=== PATIENT | male | born 1950 | race Caucasian/White ===

== ENCOUNTER 2016-02-10 12:19 | Day surgery (SDC) | payer MEDICARE, OTHER ==
[~2016-02-10] VITALS: Ht 175.3 cm; Wt 103.0 kg
[~2016-02-10 12:19] MED LIST: 0.9% Sodium Chloride 1,000 ML IV PRN; AMLO5TAB2 PO; ASPI-973 PO; CHOL5000 PO; FAMO40TA6 PO; FENO145T19 PO; FEXO-106 PO; LIP40 PO; LOSA1TAB15 PO; MULT1CAP33 PO; PRED-508 PO; SILD100T PO; SIMV20TA4 PO; Sodium Chloride LOK Flush 10 mL Syringe IV PRN; fentaNYL-PF 50 mCg/mL 2 mL Inj IVPUSH PRN
[2016-02-10 13:50] VITALS: BP 138/102; PULSE 61; O2SAT 95
[2016-02-10 14:27] VITALS: BP 125/69; PULSE 52; RESP 16; O2SAT 92
[2016-02-10 14:37] VITALS: BP 131/72; PULSE 52; RESP 16; O2SAT 95
--- NOTE | 2016-02-10 14:46 | ENDO ---
[address] [address] ENDOSCOPY PROCEDURE PATIENT: SARAH CALLE : 1950 MR#: [id number] ADMIT: 02/10/2016 JOB ID: [id number] DATE OF SERVICE: 02/10/2016 PROCEDURE PERFORMED: Colonoscopy. INDICATIONS: Screening. ASA CLASSIFICATION: The patient's ASA classification is II. MALLAMPATI SCORE: Mallampati score was 2. MEDICATIONS: 1. Versed 5 mg. 2. Fentanyl 100 mcg. INSTRUMENT USED: PCF-H180AL. PREPARATION QUALITY: Good. PROCEDURE DETAILS: After informed consent was obtained, the patient was brought into the GI suite, where he was placed on oxygen via nasal cannula and monitored with continuous pulse oximeter, telemetry, and blood pressure monitoring. A time-out was performed. Then, he was placed in the left lateral decubitus position and medications were administered for sedation. Digital rectal exam with palpation of the prostate was performed which was unremarkable. The colonoscope was then inserted into the rectum and advanced under direct visualization to the cecum, which was identified by the presence of the ileocecal valve and appendiceal orifice. Once the cecum was reached, the colonoscope was then withdrawn back to the rectum, as the mucosa and lumen were examined. In the rectum, retroflexion was performed. Following retroflexion, remaining air in the rectum was suctioned, and procedure was completed. FINDINGS: 1. A diminutive polyp was seen in the rectum that was removed with cold biopsy forceps. 2. Otherwise normal exam from rectum to cecum. 3. Retroflexed views in the rectum revealed small internal hemorrhoids. IMPRESSION: 1. Rectal polyp. 2. Internal hemorrhoids. RECOMMENDATIONS: 1. Fiber-rich diet. 2. Repeat colonoscopy pending polyp pathology results. COMPLICATIONS: None. ESTIMATED BLOOD LOSS: Less than 5 mL.
[2016-02-10 14:47] VITALS: BP 117/73; PULSE 53; RESP 16; O2SAT 96
== END 2016-02-10 23:59 | disposition home or self-care (01) ==
LOC: END 12:19
PROVIDERS: ATTEND Internal Medicine Gastroenterology
DX: Z12.11 Encounter for screening for malignant neoplasm of colon (principal); K62.1 Rectal polyp; K64.8 Other hemorrhoids; I10 Essential (primary) hypertension; G47.33 Obstructive sleep apnea (adult) (pediatric); E66.9 Obesity, unspecified; Z68.30 Body mass index [BMI] 30.0-30.9, adult; Z79.82 Long term (current) use of aspirin
CPT/HCPCS: 45380; 88305; G0500; J2250; J7030